=== PATIENT | female | born 1955 | race African-American/Black ===

== ENCOUNTER 2016-05-13 02:55 | Inpatient (IN) | payer OTHER ==
[2016-05-13 03:10] VITALS: BMI 30.4
[2016-05-13 04:07] LABS: URINE APPEARANCE SLCLOUDY; URINE BILIRUBIN NEGATIVE (NEGATIVE); URINE BLOOD NEGATIVE (NEGATIVE); URINE COLOR LTYELLOW; URINE GLUCOSE (UA) NEGATIVE (NEGATIVE); URINE KETONE NEGATIVE (NEGATIVE); URINE NITRITE NEGATIVE (NEGATIVE); URINE UROBILINOGEN NEGATIVE E.U./dl (0.2-1.0)
[2016-05-13 04:17] LABS: URINE LEUK ESTERASE 2+ (NEGATIVE); URINE PROTEIN 2+ (NEGATIVE)
[2016-05-13 04:18] LABS: URINE BACTERIA MANY /hpf (NONE SEEN); URINE HYALINE CAST 2 /lpf; URINE RBC 3 /hpf (0-3); URINE WBC 22 /hpf (3-5)
--- NOTE | 2016-05-13 04:44 | PDOC ---
[id number] 4d HEADACHE Time Seen by Provider: 05/13/16 03:11 History Source: Patient, Family Exam Limitations: No Limitations - History of Present Illness Initial Comments: 05/13/16 04:40 60yo Female patient presents to ED c/o chest tightness, sweating, headache and B /P 220/75 sudden onset at 12am this morning. Patient reports history of DM, HTN , CKD. She states she was lying down trying to sleep when symptoms began. Patient denies any other complaints at this time. Presenting Symptoms: Chest Pain Timing/Duration: reports: resolved prior to arrival Severity/Quality: reports: moderate Location: reports: substernal Chest Pain Radiation: reports: no radiation Activities at Onset: reports: no specific activity Prior Chest Pain/Cardiac Workup: reports: Stress Test (EF 57%) Modifying Factors: worse with: antacids, breathing, coughing, defecating, eating , exercise, lying down, morphine, movement, nitroglycerin, oxygen, palpation, rest, other Past History - Travel Traveled outside of the country in the last 30 days: No Close contact w/someone who was outside of country & ill: No - Past Medical History Allergies/Adverse Reactions: Allergies Allergy/AdvReac Type Severity Reaction Status Date / Time No Known Drug Allergies Allergy Verified 05/13/16 03:05 Home Medications: Ambulatory Orders Enalapril Maleate [Vasotec -] 20 mg PO DAILY 05/13/16 Insulin Glargine,Hum.rec.anlog [Lantus (10mL VIAL) -] 30 units SQ HS 05/13/16 Aspirin Coated [Ecotrin -] 81 mg PO DAILY 05/16/16 Atorvastatin Ca [Lipitor] 80 mg PO HS #30 tab 05/16/16 Docusate Sodium [Colace -] 100 mg PO BID 05/16/16 Metoprolol Succinate [Toprol XL -] 50 mg PO DAILY #30 05/16/16 Nifedipine ER [Procardia XL -] 60 mg PO DAILY #30 05/16/16 Insulin Sliding Scale [Novolog Vial Sliding Scale -] 5 units SQ QID 07/08/16 Diabetes: Yes HTN: Yes Other medical history: CKD - Psycho/Social/Smoking Cessation Hx Suicidal Ideation: No Smoking History: Never smoked Cardiac Specific PMH - Complaint Specific PMHX Abdominal Aortic Aneurysm: No Angina: No Cardiac Arrhythmia: No Cardiac Stent: No GERD: No Myocardial Infarction: No Pacemaker: No Pulmonary Embolus: No Valvular Heart Disease: No Peripheral Vascular Disease: No Review of Systems - Review of Systems Able to Perform ROS?: Yes Is the patient limited Czech proficient: No Constitutional: Yes: Weakness. No: Night Sweats Respiratory: No: Cough, Shortness of Breath, Stridor, Wheezing, Productive cough Cardiac (ROS): Yes: Chest Tightness. No: Chest Pain, Lightheadedness, Palpitations ABD/GI: No: Constipated, Diarrhea, Nausea, Poor Appetite, Poor Fluid Intake, Vomiting : No: Dysuria Musculoskeletal: No: Back Pain Integumentary: No: Erythema, Rash Neurological: Yes: Headache. No: Seizure, Tremors, Weakness, Unsteady Gait, Ataxia, Dizziness All Other Systems: Reviewed and Negative *Physical Exam - Vital Signs Last Vital Signs Temp Pulse Resp BP Pulse Ox 98.3 F 74 18 160/84 96 05/16/16 06:00 05/16/16 06:00 05/16/16 10:00 05/16/16 06:00 05/16/16 10:00 - Physical Exam General Appearance: Yes: Nourished, Appropriately Dressed. No: Apparent Distress, Mild Distress, Moderate Distress, Severe Distress HEENT: positive: EOMI, DEREK, Normal ENT Inspection, Normal Voice, Symmetrical, TMs Normal, Pharynx Normal. negative: Tonsillar Exudate, Tonsillar Erythema, Nasal Congestion, Rhinorrhea, TM Bulging, TM Dull, TM Erythema Neck: positive: Trachea midline, Supple. negative: Lymphadenopathy (R), Lymphadenopathy (L) Respiratory/Chest: positive: Lungs Clear, Normal Breath Sounds. negative: Respiratory Distress, Accessory Muscle Use, Labored Respiration, Rapid RR, Rales , Rhonchi, Wheezing Cardiovascular: positive: Regular Rhythm, Regular Rate. negative: Edema, JVD, Murmur Gastrointestinal/Abdominal: positive: Normal Bowel Sounds, Soft. negative: Distended, Guarding, Rebound, Tenderness, Hernia, Mass Musculoskeletal: positive: Normal Inspection. 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 NML intact, Fully Oriented, Alert, Normal Mood/ Affect, Normal Response, Motor Strength 5/5 Heart Score/ECG Review - ECG Impressions Normal ECG: Yes Non-specific ST Elevation: No Ischemic Changes: No Bradycardia: No Torsades annie Pointes: No WPW: No ED Treatment Course - LABORATORY CBC & Chemistry Diagram: 05/16/16 05:35 05/16/16 05:35 - ADDITIONAL ORDERS Additional order review: 05/13/16 03:56 RBC 3.10 L MCV 84.0 MCHC 33.5 RDW 13.6 MPV 9.6 Neutrophils % 59.0 Lymphocytes % 27.1 Monocytes % 7.4 Eosinophils % 5.3 H Basophils % 1.2 - RADIOLOGY Radiology Studies Ordered: Category Date Time Status CHEST PA & LAT [RAD] Stat Radiology 05/13/16 03:32 Completed - Medications Given in the ED: ED Medications Discontinued Medications Generic Name Dose Route Start Last Admin Trade Name Freq PRN Reason Stop Dose Admin Acetaminophen 650 mg 05/13/16 05:34 05/13/16 05:53 Tylenol - PO 05/13/16 05:35 650 mg ONCE ONE Administration Amlodipine Besylate 5 mg 05/14/16 17:30 05/14/16 18:02 Norvasc - PO 5 mg DAILY MERLY Administration Aspirin 324 mg 05/13/16 07:03 05/13/16 07:08 Asa - PO 05/13/16 07:04 324 mg ONCE ONE Administration Aspirin 81 mg 05/14/16 10:00 05/16/16 09:13 Ecotrin - PO 81 mg DAILY MERLY Administration Atorvastatin Calcium 20 mg 05/13/16 22:00 05/13/16 22:31 Lipitor - PO 20 mg HS MERLY Administration Atorvastatin Calcium 80 mg 05/14/16 22:00 05/15/16 21:30 Lipitor - PO 80 mg HS MERLY Administration Docusate Sodium 100 mg 05/14/16 10:00 05/16/16 09:13 Colace - PO 100 mg BID MERLY Administration Enalapril Maleate 10 mg 05/14/16 10:00 05/16/16 09:13 Vasotec - PO 10 mg DAILY MERLY Administration Furosemide 40 mg 05/13/16 08:48 05/13/16 09:26 Lasix Injection - IVPUSH 05/13/16 08:49 40 mg ONCE ONE Administration Furosemide 40 mg 05/14/16 09:16 05/14/16 09:45 Lasix Injection - IVPUSH 05/14/16 09:17 40 mg ONCE ONE Administration Furosemide 40 mg 05/15/16 10:00 05/16/16 09:12 Lasix Injection - IVPUSH 40 mg DAILY MERLY Administration Heparin Sodium (Porcine) 5,000 unit 05/13/16 22:00 05/16/16 09:12 Heparin - SQ 5,000 unit BID MERLY Administration Insulin Aspart 1 vial 05/14/16 07:00 05/16/16 12:00 Novolog Vial Sliding Scale - SQ Not Given ACHS [facility] Protocol Insulin Detemir 30 units 05/14/16 22:00 05/15/16 21:29 Levemir Vial SQ 30 units HS MERLY Administration Metoprolol Succinate 25 mg 05/13/16 11:15 05/14/16 09:39 Toprol Xl - PO 25 mg DAILY MERLY Administration Metoprolol Succinate 50 mg 05/15/16 10:00 05/16/16 09:13 Toprol Xl - PO 50 mg DAILY MERLY Administration Metoprolol Succinate 25 mg 05/14/16 17:30 05/14/16 18:02 Toprol Xl - PO 05/14/16 17:31 25 mg ONCE ONE Administration Nifedipine 60 mg 05/15/16 10:00 05/16/16 09:13 Procardia Xl - PO 60 mg DAILY MERLY Administration Progress Note - Progress Note Progress Note: PATIENT AWAITING ADMISSION TO HOSPITAL BY DR. NEW. PATIENT SHOULD BE ADMITTED FOR OBSERVATION RE: CHEST PAIN/CHF/RENAL INSUFFICIENCY. ---RANJANA DROSS PULLER *DC/Admit/Observation/Transfer Diagnosis at time of Disposition: SOB (shortness of breath) - Discharge Dispostion Disposition: HOME Condition at time of disposition: Improved Admit: No - Prescriptions
[2016-05-13 04:52] LABS: ALBUMIN 2.7 g/dl (3.4-5.0); BILIRUBIN,TOTAL 0.2 mg/dL (0.2-1.0); CALCIUM 7.9 mg/dL (8.5-10.1); CREATININE 2.5 mg/dL (0.55-1.02); MAGNESIUM 2.1 mg/dL (1.8-2.4); TOT PROT 6.6 g/dl (6.4-8.2)
[2016-05-13 04:55] LABS: TROPONIN I 0.05 ng/ml (0.00-0.05)
[2016-05-13] MEDS ORDERED: ACETAMINOPHEN 325 MG TABLET (FP) PO ONE (05:34)
[2016-05-13] MEDS ORDERED: ACETAMINOPHEN 325 MG TABLET (FP) ONE (05:54)
[2016-05-13 06:41] LABS: BASOPHIL 1.2 % (0-2.0); EOSINOPHIL 5.3 % (0-4.5); MCH 28.1 pg (25.7-33.7); MCHC 33.5 g/dl (32.0-36.0); MEAN PLT VOLUME 9.6 fl (7.5-11.1); PLATELET COUNT 329 K/MM3 (134-434); RDW 13.6 % (11.6-15.6); WHITE BLOOD COUNT 12.3 K/mm3 (4.0-10.0)
[2016-05-13] MEDS ORDERED: ASPIRIN 81 MG CHEWABLE TABLETS PO ONE (07:03)
[2016-05-13] MEDS ORDERED: ASPIRIN 325 MG TABLET ONE (07:06)
--- NOTE | 2016-05-13 07:41 | PDOC ---
[id number] 142/63 97 05/13/16 03:07 05/13/16 03:07 05/13/16 03:07 05/13/16 03:07 05/13/16 03:07 - Physical Exam General Appearance: Yes: Appropriately Dressed. No: Apparent Distress HEENT: positive: Normal Voice Neck: positive: Supple Respiratory/Chest: positive: Lungs Clear, Normal Breath Sounds. negative: Respiratory Distress Cardiovascular: positive: Regular Rate, S1, S2 Gastrointestinal/Abdominal: positive: Soft. negative: Tender Extremity: positive: Pedal Edema Integumentary: positive: Dry, Warm Neurologic: positive: Fully Oriented, Alert, Normal Mood/Affect (trace edema) <Bryan Wright - Last Filed: 05/13/16 08:55> - Vital Signs Last Vital Signs Temp Pulse Resp BP Pulse Ox 98.3 F 74 18 160/84 96 05/16/16 06:00 05/16/16 06:00 05/16/16 10:00 05/16/16 06:00 05/16/16 10:00 <Reyes Abad - Last Filed: 05/19/16 06:56> ED Treatment Course - LABORATORY CBC & Chemistry Diagram: 05/13/16 03:56 05/13/16 03:56 - ADDITIONAL ORDERS Additional order review: Laboratory Results 05/13/16 05/13/16 03:56 03:32 Sodium 139 Potassium 5.3 H Chloride 106 Carbon Dioxide 26 Anion Gap 7 L BUN 52 H Creatinine 2.5 H Creat Clearance w eGFR 19.65 Random Glucose 132 H Calcium 7.9 L Phosphorus 4.0 Magnesium 2.1 Total Bilirubin 0.2 AST 20 ALT 22 Alkaline Phosphatase 126 H Creatine Kinase 177 CK-MB (CK-2) 1.948 Troponin I 0.05 B-Natriuretic Peptide 556.94 H Total Protein 6.6 Albumin 2.7 L Urine Color Ltyellow Urine Appearance Slcloudy Urine pH 5.0 Ur Specific [place] 1.014 Urine Protein 2+ H Urine Glucose (UA) Negative Urine Ketones Negative Urine Blood Negative Urine Nitrite Negative Urine Bilirubin Negative Urine Urobilinogen Negative Ur Leukocyte Esterase 2+ H Urine RBC 3 Urine WBC 22 Ur Epithelial Cells Few Urine Bacteria Many Hyaline Casts 2 05/13/16 03:56 RBC 3.10 L MCV 84.0 MCHC 33.5 RDW 13.6 MPV 9.6 Neutrophils % 59.0 Lymphocytes % 27.1 Monocytes % 7.4 Eosinophils % 5.3 H Basophils % 1.2 - Medications Given in the ED: ED Medications Discontinued Medications Generic Name Dose Route Start Last Admin Trade Name Nneka PRN Reason Stop Dose Admin Acetaminophen 650 mg 05/13/16 05:34 05/13/16 05:53 Tylenol - PO 05/13/16 05:35 650 mg ONCE ONE Administration Aspirin 324 mg 05/13/16 07:03 05/13/16 07:08 Asa - PO 05/13/16 07:04 324 mg ONCE ONE Administration <Bryan Wright - Last Filed: 05/13/16 08:55> - LABORATORY CBC & Chemistry Diagram: 05/16/16 05:35 05/16/16 05:35 - ADDITIONAL ORDERS Additional order review: 05/13/16 03:56 RBC 3.10 L MCV 84.0 MCHC 33.5 RDW 13.6 MPV 9.6 Neutrophils % 59.0 Lymphocytes % 27.1 Monocytes % 7.4 Eosinophils % 5.3 H Basophils % 1.2 - Medications Given in the ED: ED Medications Discontinued Medications Generic Name Dose Route Start Last Admin Trade Name Nneka PRN Reason Stop Dose Admin Acetaminophen 650 mg 05/13/16 05:34 05/13/16 05:53 Tylenol - PO 05/13/16 05:35 650 mg ONCE ONE Administration Amlodipine Besylate 5 mg 05/14/16 17:30 05/14/16 18:02 Norvasc - PO 5 mg DAILY MERLY Administration Aspirin 324 mg 05/13/16 07:03 05/13/16 07:08 Asa - PO 05/13/16 07:04 324 mg ONCE ONE Administration Aspirin 81 mg 05/14/16 10:00 05/16/16 09:13 Ecotrin - PO 81 mg DAILY MERLY Administration Atorvastatin Calcium 20 mg 05/13/16 22:00 05/13/16 22:31 Lipitor - PO 20 mg HS MERLY Administration Atorvastatin Calcium 80 mg 05/14/16 22:00 05/15/16 21:30 Lipitor - PO 80 mg HS MERLY Administration Docusate Sodium 100 mg 05/14/16 10:00 05/16/16 09:13 Colace - PO 100 mg BID MERLY Administration Enalapril Maleate 10 mg 05/14/16 10:00 05/16/16 09:13 Vasotec - PO 10 mg DAILY MERLY Administration Furosemide 40 mg 05/13/16 08:48 05/13/16 09:26 Lasix Injection - IVPUSH 05/13/16 08:49 40 mg ONCE ONE Administration Furosemide 40 mg 05/14/16 09:16 05/14/16 09:45 Lasix Injection - IVPUSH 05/14/16 09:17 40 mg ONCE ONE Administration Furosemide 40 mg 05/15/16 10:00 05/16/16 09:12 Lasix Injection - IVPUSH 40 mg DAILY MERLY Administration Heparin Sodium (Porcine) 5,000 unit 05/13/16 22:00 05/16/16 09:12 Heparin - SQ 5,000 unit BID MERLY Administration Insulin Aspart 1 vial 05/14/16 07:00 05/16/16 12:00 Novolog Vial Sliding Scale - SQ Not Given ACHS [facility] Protocol Insulin Detemir 30 units 05/14/16 22:00 05/15/16 21:29 Levemir Vial SQ 30 units HS MERLY Administration Metoprolol Succinate 25 mg 05/13/16 11:15 05/14/16 09:39 Toprol Xl - PO 25 mg DAILY MERLY Administration Metoprolol Succinate 50 mg 05/15/16 10:00 05/16/16 09:13 Toprol Xl - PO 50 mg DAILY MERLY Administration Metoprolol Succinate 25 mg 05/14/16 17:30 05/14/16 18:02 Toprol Xl - PO 05/14/16 17:31 25 mg ONCE ONE Administration Nifedipine 60 mg 05/15/16 10:00 05/16/16 09:13 Procardia Xl - PO 60 mg DAILY MERLY Administration <Reyes Abad - Last Filed: 05/19/16 06:56> Medical Decision Making - Medical Decision Making 05/13/16 07:36 Patient signed out to me at 7 AM. Patient is a 60-year-old female history of diabetes, hypertension and chronic kidney disease who presented with chest tightness, diaphoresis and headache in the setting of elevated BP at home. BP normalized in ED without any intervention. Pt found to have positive crackles on exam and pedal edema, which is intermittent as per patient. Labs only remarkable for BNP in the 500s (unknown baseline) with congestive changes on chest x-ray. EKG and initial troponin negative, second troponin pending. Of note, patient had stress test 4 days ago, which showed no significant EKG changes on exercise portion, but nuclear portion did show mild nonextensive inferolateral ischemia with EF of 57% . Patient currently asymptomatic and stable on the monitor. 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 05/13/16 08:[address] Rose who recommended 1 dose of 40 mg IV Lasix in ED and that ED placed consult to Dr. Pinon. Patient will be admitted to telemetry 05/13/16 08:55 <Bryan Wright - Last Filed: 05/13/16 08:55> - Medical Decision Making 05/19/16 06:56 ED Attending note: I was available, involved in the case with the mid level provider as needed and in a limited capacity. <Reyes Abad - Last Filed: 05/19/16 06:56> *DC/Admit/Observation/Transfer - Discharge Dispostion Admit: Yes <Bryan Wright - Last Filed: 05/13/16 08:55> <Reyes Abad - Last Filed: 05/19/16 06:56> Diagnosis at time of Disposition: SOB (shortness of breath) - Discharge Dispostion Disposition: HOME Condition at time of disposition: Improved - Prescriptions - Referrals
[2016-05-13] MEDS ORDERED: FUROSEMIDE 40 MG/4 ML INJECTABLE VIAL IVPUSH ONE (08:48)
[2016-05-13] MEDS ORDERED: FUROSEMIDE 40 MG/4 ML INJECTABLE VIAL ONE (09:16)
--- NOTE | 2016-05-13 10:26 | CON.CARD ---
[id number] 4d hypertensive urgency - History of Present Illness Chief Complaint: hi bp History of Present Illness: 60 yo Female patient presents to ED c/o chest tightness, sweating, headache and B/P 220/75 sudden onset at 12am this morning. occurred while she was lying in bed, not yet having fallen asleep. also associated L scapular pain but no radiation of chest to back, no "tearing" sensation. no assctd new neuro deficits. the above sx's have all resolved. never had them before. denies sob. now c/o R scapular pain which is worse with movement, better if i press on the area. bp 140s upon arrival to ER, came down from there PMH: HTN DM CKD - Smoking History Smoking history: Never smoked Home Medications - Allergies Allergies/Adverse Reactions: Allergies Allergy/AdvReac Type Severity Reaction Status Date / Time No Known Drug Allergies Allergy Verified 05/13/16 03:05 - Home Medications Home Medications: Ambulatory Orders Docusate Sodium [Colace -] 100 mg PO DAILY 05/13/16 Enalapril Maleate [Vasotec -] 10 mg PO DAILY 05/13/16 Insulin Aspart [Novolog] 5 unit SQ TID 05/13/16 Insulin Glargine,Hum.rec.anlog [Lantus (nf)] 30 units SQ HS 05/13/16 Nifedipine [Procardia Xl] 90 mg PO DAILY 05/13/16 Family Disease History - Family Disease History Family History: Denies (no cmp) Review of Systems - Review of Systems Constitutional: denies: Chills, Fever Eyes: denies: Eye Pain HENT: denies: Nasal Congestion Neck: denies: Stiffness Cardiovascular: denies: Palpitations Respiratory: denies: Orthopnea, PND Gastrointestinal: denies: Diarrhea, Rectal Bleeding Genitourinary: denies: Burning, Hematuria Musculoskeletal: denies: Muscle Pain Integumentary: denies: Rash Neurological: denies: Numbness, Seizure, Syncope Endocrine: denies: Excessive Sweating Hematology/Lymphatic: denies: Excessive Bleeding Vital Signs: Vital Signs Temperature 97.7 F 05/13/16 07:23 Pulse Rate 82 05/13/16 09:25 Respiratory Rate 16 05/13/16 09:25 Blood Pressure 121/68 05/13/16 09:25 O2 Sat by Pulse Oximetry (%) 98 05/13/16 09:25 Constitutional: Yes: No Distress, Obese Eyes: No: Sclera Icterus HENT: No: Nasal Congestion Neck: No: Decreased ROM Respiratory: Yes: CTA Bilaterally. No: Accessory Muscle Use, Rales, Wheezes Gastrointestinal: Yes: Normal Bowel Sounds. No: Distention, Hepatomegaly, Palpable Mass, Tenderness Cardiovascular: Yes: Regular Rate and Rhythm JVD: No Carotid Bruit: No PMI: Non-Displaced Heart Sounds: Yes: S1, S2. No: Gallop Murmur: No: Systolic Murmur, Diastolic Murmur Musculoskeletal: Yes: Other (No kyphosis) Extremities: No: Cold, Cyanosis Edema: Yes (trace ankles) Peripheral Pulses: 2+ Left Carotid, 2+ Right Carotid, 2+ Left Doralis Pedis, 2+ Right Dorsalis Pedis Integumentary: No: Jaundice Neurological: Yes: Alert, Oriented (x3) Psychiatric: No: Agitated - Other Data Labs, Other Data: Laboratory Tests 05/13/16 05/13/16 05/13/16 03:56 03:56 05:52 WBC 12.3 H Hgb 8.7 L Plt Count 329 Sodium 139 Potassium 5.3 H Carbon Dioxide 26 BUN 52 H Creatinine 2.5 H AST 20 ALT 22 Troponin I 0.05 0.05 B-Natriuretic Peptide 556.94 H Albumin 2.7 L ekg in ER 05/13: NSR, nornmal axis/intervals; NSST-T lateral leads; no path q's ( no old) Imaging - Results Chest X-ray: Report Reviewed, Image Reviewed Assessment/Plan HTN urgency: -symptomatic severe bp elevation ? while asleep -bp 140s upon arrival to ER, now normotensive -? BOO contributing -cont home nifedipine -hold enalapril pending input from dr persaud (? 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 baseline -creat 2.5 elevated BNP: -bnp 500s in setting of hi creat--not helpful data -cxr "large heart, congestive changes"--reviewed by me: heart size borderline; prob vasc redistribution with mild interstitial markings, no effusions -s/p lasix in ER x 1 early this am -comfortable with no sob/orthopnea at present, no signif edema, cannot assess jvd sec to markedly obese neck -hold further lasix for now
[2016-05-13] MEDS: METOPROLOL SUCCINATE 25 MG TAB.SR.24H (FP) PO SCH (11:42)
[2016-05-13 13:56] LABS: TROPONIN I 0.04 ng/ml (0.00-0.05)
--- NOTE | 2016-05-13 17:45 | CONSULT ---
Consult Consult Specialty:: Nephrology Reason for Consultation:: ANAIS - History of Present Illness Chief Complaint: chest tightness History of Present Illness: Pt is a 60 year old female who presents to the ER with chest tightness. She was found to have elevated blood pressure. I was called to evaluate her for elevated creatinine. She denies history of CKD. She denies dysuria or hematuria. She has history of DM and HTN. She says she feels better today. She does not know which meds she is on. She does not know how her blood pressure usually runs. - History Source History Provided By: Patient - Past Medical History Cardio/Vascular: Yes: HTN, Hyperlipdemia Renal/: Yes: Renal Inusuff - Smoking History Smoking history: Never smoked Home Medications - Allergies Allergies/Adverse Reactions: Allergies Allergy/AdvReac Type Severity Reaction Status Date / Time No Known Drug Allergies Allergy Verified 05/13/16 03:05 - Home Medications Home Medications: Ambulatory Orders Docusate Sodium [Colace -] 100 mg PO DAILY 05/13/16 Enalapril Maleate [Vasotec -] 10 mg PO DAILY 05/13/16 Insulin Aspart [Novolog] 5 unit SQ TID 05/13/16 Insulin Glargine,Hum.rec.anlog [Lantus (nf)] 30 units SQ HS 05/13/16 Nifedipine [Procardia Xl] 90 mg PO DAILY 05/13/16 Family Disease History - Family Disease History Family History: Denies Review of Systems - Review of Systems Constitutional: reports: Malaise Eyes: reports: No Symptoms HENT: reports: No Symptoms Neck: reports: No Symptoms Cardiovascular: reports: Chest Pain Respiratory: reports: No Symptoms Gastrointestinal: reports: No Symptoms Genitourinary: reports: No Symptoms Musculoskeletal: reports: No Symptoms Endocrine: reports: No Symptoms Hematology/Lymphatic: reports: No Symptoms Psychiatric: reports: No Symptoms Physical Exam Vital Signs: Vital Signs Temperature 97.9 F 05/13/16 17:30 Pulse Rate 84 05/13/16 17:30 Respiratory Rate 18 05/13/16 17:30 Blood Pressure 136/78 05/13/16 17:30 O2 Sat by Pulse Oximetry (%) 97 05/13/16 17:30 Constitutional: Yes: Calm Eyes: Yes: Conjunctiva Clear HENT: Yes: Atraumatic Neck: Yes: Supple Cardiovascular: Yes: S1, S2 Respiratory: Yes: CTA Bilaterally Gastrointestinal: Yes: Normal Bowel Sounds, Soft Renal/: Yes: WNL Musculoskeletal: Yes: WNL Edema: No Neurological: Yes: Oriented Psychiatric: Yes: Oriented Labs: Laboratory Tests 05/13/16 05/13/16 05/13/16 03:32 03:56 03:56 WBC 12.3 H Hgb 8.7 L Plt Count 329 Sodium 139 Potassium 5.3 H Chloride 106 Carbon Dioxide 26 Anion Gap 7 L BUN 52 H Creatinine 2.5 H Random Glucose 132 H Calcium 7.9 L B-Natriuretic Peptide 556.94 H Urine Color Ltyellow Urine Appearance Slcloudy Urine pH 5.0 Ur Specific [place] 1.014 Urine Protein 2+ H Urine Glucose (UA) Negative Urine Ketones Negative Urine Blood Negative Urine Nitrite Negative Urine Bilirubin Negative Urine Urobilinogen Negative Imaging - Results Chest X-ray: Report Reviewed Problem List - Problems (1) Hypertension Code(s): I10 - ESSENTIAL (PRIMARY) HYPERTENSION (2) Diabetes mellitus Code(s): E11.9 - TYPE 2 DIABETES MELLITUS WITHOUT COMPLICATIONS (3) CKD (chronic kidney disease) Code(s): N18.9 - CHRONIC KIDNEY DISEASE, UNSPECIFIED Assessment/Plan Current Medications Generic Name Dose Route Start Last Admin Trade Name Freq PRN Reason Stop Dose Admin Aspirin 81 mg 05/14/16 10:00 Ecotrin - PO DAILY MERLY Atorvastatin Calcium 20 mg 05/13/16 22:00 Lipitor - PO HS MERLY Heparin Sodium (Porcine) 5,000 unit 05/13/16 22:00 Heparin - SQ BID MERLY Metoprolol Succinate 25 mg 05/13/16 11:15 05/13/16 11:42 Toprol Xl - PO 25 mg DAILY MERLY Administration Selected Entries 05/13/16 05/13/16 05/13/16 07:23 09:25 11:40 Blood Pressure 119/70 121/68 115/63 [Left Arm] 05/13/16 05/13/16 12:40 17:30 Blood Pressure 103/63 136/78 [Left Arm] Impression 1. CKD unclear baseline creatinine 2. HTN uncontrolled 3. chest pain r/o acs 4. hyperlipidemia Plan - check UA - blood pressure values have been stable - will need to obtain outpt records - repeat labs in am - will follow and comment on etiology of CKD as more data is gathered Dr Nevarez
--- NOTE | 2016-05-13 19:35 | HP ---
Admitting History and Physical - Primary Care Physician PCP: chest pain - Admission History of Present Illness: Patient is a 60-year-old female, who relocated to [facility] about 6 months ago -- admits "poor medical care in her country" She has about 20 yr history of diabetes, hypertension and on recent labs found to have Cr 2.2 - which is probably her baseline. Patient called the service with c/o chest pain, cold sweats and "difficulty breathing"- she reports she was unable to lay flat due to SOB. Daughter who is an RN reports patient with rales and wheezing at that time ( no Hx of asthma)- she was instructed to go the [facility] ER--- She presents to ER with chest tightness, diaphoresis and headache in the setting of elevated BP at home. BP normalized in ED without any intervention. Pt found to have positive crackles on exam and pedal edema, which is intermittent as per patient. Labs only remarkable for BNP in the 500s (unknown baseline) with congestive changes on chest x-ray; elevated BNP not useful in the setting of CKD. EKG and initial troponin negative, second troponin pending. Of note, patient had stress test 4 days ago, which showed no significant EKG changes on exercise portion, but nuclear portion did show mild nonextensive inferolateral ischemia with EF of 57%. Patient currently asymptomatic and stable on the monitor. History Source: Patient, Family Member (daughter), Medical Record Limitations to Obtaining History: No Limitations - Past Medical History Cardiovascular: Yes: HTN, Hyperlipdemia Renal/: Yes: Renal Inusuff Endocrine: Yes: Diabetes Mellitus - Smoking History Smoking history: Never smoked - Alcohol/Substance Use History of Substance Use: reports: None - Social History ADL: Independent History of Recent Travel: Yes Home Medications - Allergies Allergies/Adverse Reactions: Allergies Allergy/AdvReac Type Severity Reaction Status Date / Time No Known Drug Allergies Allergy Verified 05/13/16 03:05 - Home Medications Home Medications: Ambulatory Orders Docusate Sodium [Colace -] 100 mg PO DAILY 05/13/16 Enalapril Maleate [Vasotec -] 10 mg PO DAILY 05/13/16 Insulin Aspart [Novolog] 5 unit SQ TID 05/13/16 Insulin Glargine,Hum.rec.anlog [Lantus (nf)] 30 units SQ HS 03/20/17 Nifedipine [Procardia Xl] 90 mg PO DAILY 05/13/16 Review of Systems - Review of Systems Constitutional: reports: No Symptoms Eyes: reports: No Symptoms HENT: reports: No Symptoms Neck: reports: No Symptoms Cardiovascular: reports: Chest Pain, Shortness of Breath, Other (diaphoresis) Respiratory: reports: SOB Genitourinary: reports: No Symptoms Breasts: reports: No Symptoms Reported Musculoskeletal: reports: No Symptoms Integumentary: reports: No Symptoms Neurological: reports: Headache Endocrine: reports: No Symptoms Hematology/Lymphatic: reports: No Symptoms Psychiatric: reports: No Symptoms Physical Examination Vital Signs: Vital Signs Temperature 97.9 F 05/13/16 17:30 Pulse Rate 84 05/13/16 17:30 Respiratory Rate 18 05/13/16 17:30 Blood Pressure 136/78 05/13/16 17:30 O2 Sat by Pulse Oximetry (%) 97 05/13/16 17:30 Constitutional: Yes: Well Nourished, No Distress, Calm Eyes: Yes: WNL HENT: Yes: WNL Neck: Yes: Supple, Trachea Midline Cardiovascular: Yes: WNL, Regular Rate and Rhythm Respiratory: Yes: WNL Gastrointestinal: Yes: WNL, Normal Bowel Sounds, Soft ...Rectal Exam: Yes: Deferred Renal/: Yes: WNL Breast(s): Yes: WNL Musculoskeletal: Yes: WNL Extremities: Yes: WNL Edema: Yes Edema: LLE: 2+, RLE: 2+ Peripheral Pulses: Left Radial: 2+, Right Radial: 2+, Left Doralis Pedis: 2+, Right Dorsalis Pedis: 2+, Left Femoral: 2+, Right Femoral: 2+ Neurological: Yes: WNL ...Motor Strength: WNL Psychiatric: Yes: WNL Problem List - Problems (1) ACS (acute coronary syndrome) Code(s): I24.9 - ACUTE ISCHEMIC HEART DISEASE, UNSPECIFIED (2) SOB (shortness of breath) Code(s): R06.02 - SHORTNESS OF BREATH (3) CKD (chronic kidney disease) Code(s): N18.9 - CHRONIC KIDNEY DISEASE, UNSPECIFIED (4) Diabetes mellitus Code(s): E11.9 - TYPE 2 DIABETES MELLITUS WITHOUT COMPLICATIONS (5) Hypertension Code(s): I10 - ESSENTIAL (PRIMARY) HYPERTENSION (6) Diastolic dysfunction with heart failure Code(s): I50.30 - UNSPECIFIED DIASTOLIC (CONGESTIVE) HEART FAILURE Assessment/Plan # Atypical chest pain / SOB /diaphoresis acute coronary syndrome serial EKG / Troponins / records obtainable from office and [facility] Cardiology consult # Diabetes Mellitus II ~ 20 yrs Last HgA1c > 10 treatment adjusted at that time ( 1-2 months ago ) continue on Insulin -- Basal and with sliding scale # HTN ~ 15 yrs On Giuliano and CCB has been well controlled as out patient # CKD only one set of labs at office Cr 2.2 + proteinuria --? baseline U/A with proteinuria + cast on admission on GIULIANO i Nephrology consult # HLD fasting Lipids
[2016-05-13] MEDS ORDERED: ATORVASTATIN CA 20 MG TABLET (FP) PO SCH (22:00)
[2016-05-13] MEDS ORDERED: HEPARIN NA (PORCINE) 5,000 UNITS/ML 1ML VIAL ONE (22:19)
[2016-05-13] MEDS ORDERED: ATORVASTATIN CA 40 MG TABLET (FP) ONE (22:19)
[2016-05-13] MEDS: HEPARIN NA (PORCINE) 5,000 UNITS/ML 1ML VIAL SQ SCH (22:31)
[2016-05-14] MEDS: INSULIN SLIDING SCALE (NOVOLOG) 1 VIAL SQ SCH ×4 (06:07→21:49)
[2016-05-14 07:20] LABS: BASOPHIL 0.8 % (0-2.0); EOSINOPHIL 3.7 % (0-4.5); MCHC 33.8 g/dl (32.0-36.0); MEAN CELL VOLUME 82.9 fl (80-96); MEAN PLT VOLUME 9.4 fl (7.5-11.1); NEUTROPHILS 62.4 % (42.8-82.8); PLATELET COUNT 315 K/MM3 (134-434); RDW 13.6 % (11.6-15.6); WHITE BLOOD COUNT 11.9 K/mm3 (4.0-10.0)
[2016-05-14 07:48] LABS: CALCIUM 8.6 mg/dL (8.5-10.1); CREATININE 2.1 mg/dL (0.55-1.02)
[2016-05-14] MEDS ORDERED: FUROSEMIDE 40 MG/4 ML INJECTABLE VIAL IVPUSH ONE (09:16)
[2016-05-14] MEDS: DOCUSATE SODIUM 100 MG CAPSULE (FP) PO SCH ×2 (09:39→21:48)
[2016-05-14] MEDS: HEPARIN NA (PORCINE) 5,000 UNITS/ML 1ML VIAL SQ SCH ×2 (09:39→21:50)
[2016-05-14] MEDS: METOPROLOL SUCCINATE 25 MG TAB.SR.24H (FP) PO SCH (09:39)
[2016-05-14] MEDS: ENALAPRIL MALEATE 10 MG TABLET (FP) PO SCH (09:39)
[2016-05-14] MEDS: ASPIRIN COATED 81 MG TABLET.EC PO SCH (09:39)
[2016-05-14] MEDS ORDERED: NIFEdipine E.R. 90 MG TABLET (FP) PO SCH (10:00)
[2016-05-14] MEDS ORDERED: DOCUSATE SODIUM 100 MG CAPSULE (FP) PO SCH (10:00)
[2016-05-14 11:29] LABS: URINE APPEARANCE CLEAR; URINE BILIRUBIN NEGATIVE (NEGATIVE); URINE BLOOD NEGATIVE (NEGATIVE); URINE COLOR STRAW; URINE GLUCOSE (UA) NEGATIVE (NEGATIVE); URINE KETONE NEGATIVE (NEGATIVE); URINE LEUK ESTERASE NEGATIVE (NEGATIVE); URINE NITRITE NEGATIVE (NEGATIVE); URINE UROBILINOGEN NEGATIVE E.U./dl (0.2-1.0)
[2016-05-14 11:42] LABS: URINE PROTEIN 2+ (NEGATIVE)
[2016-05-14 12:06] LABS: URINE RBC 1 /hpf (0-3); URINE WBC 3 /hpf (3-5)
--- NOTE | 2016-05-14 12:12 | PN ---
Progress Note (short form) - Note Progress Note: Chief Complaint: high bp/sob S: s/p lasix 40 mg IV x 1 05/13 and this morning. sob, le edema improving. no cp, palps, dizziness. Current Medications Aspirin (Ecotrin -) 81 mg PO DAILY [facility] Last Admin: 05/14/16 09:39 Dose: 81 mg Atorvastatin Calcium (Lipitor -) 20 mg PO HS [facility] Last Admin: 05/13/16 22:31 Dose: 20 mg Docusate Sodium (Colace -) 100 mg PO BID [facility] Last Admin: 05/14/16 09:39 Dose: 100 mg Enalapril Maleate (Vasotec -) 10 mg PO DAILY [facility] Last Admin: 05/14/16 09:39 Dose: 10 mg Heparin Sodium (Porcine) (Heparin -) 5,000 unit SQ BID [facility] Last Admin: 05/14/16 09:39 Dose: 5,000 unit Insulin Aspart (Novolog Vial Sliding Scale -) 1 vial SQ [facility] PRN Reason: Protocol Last Admin: 05/14/16 06:07 Dose: Not Given Insulin Detemir (Levemir Vial) 30 units SQ [facility] Metoprolol Succinate (Toprol Xl -) 25 mg PO DAILY [facility] Last Admin: 05/14/16 09:39 Dose: 25 mg Vital Signs - 24 hr 05/13/16 05/13/16 05/13/16 12:40 17:30 21:00 Temperature 97.6 F 97.9 F 97 F L Pulse Rate 86 Pulse Rate [ 84 Right Radial] Pulse Rate [ 88 Right] Respiratory 18 18 20 Rate Blood Pressure 160/80 Blood Pressure 103/63 136/78 [Left Arm] O2 Sat by Pulse 90 L 97 Oximetry (%) 05/13/16 05/13/16 05/14/16 22:32 23:00 03:00 Temperature 98.2 F 97 F L 99.2 F Pulse Rate 90 93 H Pulse Rate [ 84 Right Radial] Pulse Rate [ 85 Right] Respiratory 18 20 20 Rate Blood Pressure 160/80 137/72 Blood Pressure 148/77 [Left Arm] O2 Sat by Pulse 95 95 Oximetry (%) 05/14/16 10:00 Temperature 98.7 F Pulse Rate 85 Pulse Rate [ Right Radial] Pulse Rate [ Right] Respiratory 20 Rate Blood Pressure 137/77 Blood Pressure [Left Arm] O2 Sat by Pulse 100 Oximetry (%) Intake & Output 05/12/16 05/13/16 05/14/16 05/15/16 07:59 07:59 07:59 07:59 Intake Total 100 Output Total 300 Balance -200 Weight 172 lb Constitutional: Yes: No Distress, Obese Eyes: No: Sclera Icterus HENT: No: Nasal Congestion Neck: No: Decreased ROM Respiratory: Yes: bibasilar rales. No: Accessory Muscle Use, Rales, Wheezes Gastrointestinal: Yes: Normal Bowel Sounds. No: Distention, Hepatomegaly, Palpable Mass, Tenderness Cardiovascular: Yes: Regular Rate and Rhythm JVD: mild elevation Carotid Bruit: No PMI: Non-Displaced Heart Sounds: Yes: S1, S2. No: Gallop Murmur: No: Systolic Murmur, Diastolic Murmur Musculoskeletal: Yes: Other (No kyphosis) Extremities: No: Cold, Cyanosis Edema: no Peripheral Pulses: 2+ Left Carotid, 2+ Right Carotid, 2+ Left Doralis Pedis, 2+ Right Dorsalis Pedis Integumentary: No: Jaundice Neurological: Yes: Alert, Oriented (x3) Psychiatric: No: Agitated - Other Data Labs, Other Data: CBC, BMP 05/14/16 05:35 05/14/16 05:35 Laboratory Tests 05/14/16 05:35 Triglycerides 158 Cholesterol 333 H Total LDL Cholesterol 248 H HDL Cholesterol 41 ekg in ER 05/13: NSR, nornmal axis/intervals; NSST-T lateral leads; no path q's ( no old) stress 04/2016 (outpt): non-ischemic EKG. mild intensity small area of inferolateral ischemia. Nl EF 57% Imaging - Results Chest X-ray: Report Reviewed, Image Reviewed. congestive changes with small effusions. Slightly improved on repeat today 05/14 Assessment/Plan 60 yo with h/o HTN, CKD, DM p/w sob/orthopnea, chest tightness, sweating, headache and B/P 220/75 acute diastolic HF exacerbation - acute HTN, possible trigger. No signs of valvular disease on exam. Would get echo as outpatient once euvolemic. - getting 40 mg IV lasix with improvement in creatinine and pulm edema. Would continue. Daily weights, bmp, i/o . - BP control HTN urgency: -symptomatic severe bp elevation ? while asleep --> bp 140s upon arrival to ER. Can consider sleep study as outpatient to assess if BOO contributing to nighttime bp elevation. - bp now improved on metoprolol, enalapril. con't - close monitoring of potassium on enalapril (borderline high). If need to stop , or if bp's > 140, can replace with/add home nifedipine cp/CAD: -trop neg x 3. ECG with nonsp ST-Ts no prior baseline. current presentation of nonspecific (nonexertional) sx's in setting of marked bp elevation are highly unlikely to be acute myocardial ischemia syndrome -small inferolateral ischemia on recent nuclear stress test (study done here, report reviewed ) with no hi risk findings--not likely contributing to chf and pt hi risk for CLAUDIO--would not rec cath. Cont medical management. - metoprolol, ASA and statin therapy initiated. HL - LDL significantly elevated. will increase statin dose to 80 mg qhs CKD: -? baseline, currently improving with diuresis. Con't to monitor
--- NOTE | 2016-05-14 15:04 | PN ---
Progress Note, Physician History of Present Illness: Pt seen and examined at bedside. She is awake and alert. She says she feels better today. She feels that her breathing is improved. - Current Medication List Current Medications: Active Medications Aspirin (Ecotrin -) 81 mg PO DAILY [facility] Last Admin: 05/14/16 09:39 Dose: 81 mg Atorvastatin Calcium (Lipitor -) 80 mg PO HS [facility] Docusate Sodium (Colace -) 100 mg PO BID [facility] Last Admin: 05/14/16 09:39 Dose: 100 mg Enalapril Maleate (Vasotec -) 10 mg PO DAILY [facility] Last Admin: 05/14/16 09:39 Dose: 10 mg Furosemide (Lasix Injection -) 40 mg IVPUSH DAILY [facility] Heparin Sodium (Porcine) (Heparin -) 5,000 unit SQ BID [facility] Last Admin: 05/14/16 09:39 Dose: 5,000 unit Insulin Aspart (Novolog Vial Sliding Scale -) 1 vial SQ [facility] PRN Reason: Protocol Last Admin: 05/14/16 12:10 Dose: Not Given Insulin Detemir (Levemir Vial) 30 units SQ HS [facility] Metoprolol Succinate (Toprol Xl -) 25 mg PO DAILY [facility] Last Admin: 05/14/16 09:39 Dose: 25 mg - Objective Vital Signs: Vital Signs Temperature 98.8 F 05/14/16 14:00 Pulse Rate 88 05/14/16 14:00 Respiratory Rate 20 05/14/16 14:00 Blood Pressure 159/87 05/14/16 14:00 O2 Sat by Pulse Oximetry (%) 100 05/14/16 10:00 Constitutional: Yes: Calm Eyes: Yes: Conjunctiva Clear HENT: Yes: Atraumatic Neck: Yes: Supple Cardiovascular: Yes: S1, S2 Respiratory: Yes: On Nasal O2 Gastrointestinal: Yes: Soft Genitourinary: Yes: WNL Musculoskeletal: Yes: WNL Edema: Yes Edema: LLE: Trace, RLE: Trace Neurological: Yes: Oriented Psychiatric: Yes: Oriented Labs: CBC, BMP 05/14/16 05:35 05/14/16 05:35 Problem List - Problems (1) Hypertension Code(s): I10 - ESSENTIAL (PRIMARY) HYPERTENSION (2) Diabetes mellitus Code(s): E11.9 - TYPE 2 DIABETES MELLITUS WITHOUT COMPLICATIONS (3) CKD (chronic kidney disease) Code(s): N18.9 - CHRONIC KIDNEY DISEASE, UNSPECIFIED Assessment/Plan Current Medications Generic Name Dose Route Start Last Admin Trade Name Nneka PRN Reason Stop Dose Admin Aspirin 81 mg 05/14/16 10:00 05/14/16 09:39 Ecotrin - PO 81 mg DAILY [facility] Administration Atorvastatin Calcium 80 mg 05/14/16 22:00 Lipitor - PO HS [facility] Docusate Sodium 100 mg 05/14/16 10:00 05/14/16 09:39 Colace - PO 100 mg BID [facility] Administration Enalapril Maleate 10 mg 05/14/16 10:00 05/14/16 09:39 Vasotec - PO 10 mg DAILY [facility] Administration Furosemide 40 mg 05/15/16 10:00 Lasix Injection - IVPUSH DAILY [facility] Heparin Sodium (Porcine) 5,000 unit 05/13/16 22:00 05/14/16 09:39 Heparin - SQ 5,000 unit BID [facility] Administration Insulin Aspart 1 vial 05/14/16 07:00 05/14/16 12:10 Novolog Vial Sliding Scale - SQ Not Given ACHS [facility] Protocol Insulin Detemir 30 units 05/14/16 22:00 Levemir Vial SQ HS [facility] Metoprolol Succinate 25 mg 05/13/16 11:15 05/14/16 09:39 Toprol Xl - PO 25 mg DAILY [facility] Administration Laboratory Tests 05/14/16 10:45 Urine Color Straw Urine Appearance Clear Urine pH 6.0 Ur Specific [place] 1.012 Urine Protein 2+ H Urine Glucose (UA) Negative Urine Ketones Negative Urine Blood Negative Urine Nitrite Negative Urine Bilirubin Negative Urine Urobilinogen Negative Ur Leukocyte Esterase Negative Impression 1. CKD unclear baseline creatinine 2. HTN uncontrolled 3. chest pain r/o acs 4. hyperlipidemia Plan - cont with lasix - start low potassium diet - cont vasotec for now - repeat labs in am - monitor BP - renal ultrasound reviewed Dr Nevarez
--- NOTE | 2016-05-14 17:05 | EKG ---
Test Reason : Blood Pressure : / mmHG Vent. Rate : 089 BPM Atrial Rate : 089 BPM P-R Int : 146 ms QRS Dur : 084 ms QT Int : 370 ms P-R-T Axes : 056 043 067 degrees QTc Int : 450 ms NORMAL SINUS RHYTHM NORMAL ECG WHEN COMPARED WITH ECG OF 13-MAY-2016 04:01, NO SIGNIFICANT CHANGE WAS FOUND Confirmed by SALVATORE ROBINS MD ([id number]) on 05/14/2016 5:05:01 PM Referred By: SHAHZAD STAUFFER Confirmed By:SALVATORE ROBINS MD
--- NOTE | 2016-05-14 17:11 | EKG ---
Test Reason : Blood Pressure : / mmHG Vent. Rate : 094 BPM Atrial Rate : 094 BPM P-R Int : 142 ms QRS Dur : 082 ms QT Int : 360 ms P-R-T Axes : 066 052 083 degrees QTc Int : 450 ms NORMAL SINUS RHYTHM NONSPECIFIC T WAVE ABNORMALITY ABNORMAL ECG NO PREVIOUS ECGS AVAILABLE Confirmed by JULIENNE SMITH, SALVATORE ([id number]) on 05/14/2016 5:10:51 PM Referred By: Confirmed By:SALVATORE ROBINS MD
[2016-05-14] MEDS ORDERED: amLODIPine BESYLATE 5 MG TABLET (FP) PO SCH (17:30)
[2016-05-14] MEDS ORDERED: METOPROLOL SUCCINATE 25 MG TAB.SR.24H (FP) PO ONE (17:30)
--- NOTE | 2016-05-14 20:18 | PN ---
Progress Note (short form) - Note Progress Note: patient comfortable reports less SOB states voided " a lot" after "the shot " this am Vital Signs Period Temp Pulse Resp BP Sys/Martel Pulse Ox Last 24 Hr 97 F-99.2 F 82-93 18-20 137-170/72-87 95-100 Intake & Output 05/11/16 05/12/16 05/13/16 05/14/16 23:59 23:59 23:59 23:59 Intake Total 100 Output Total 300 Balance -200 Weight 172 lb neck supple heart reg S1/S2 Lungs crackles at right base - otherwise clear abd soft non tenderness Ext Le ++ edema bilat up to thighs CBC, BMP 05/14/16 05:35 05/14/16 05:35 Active Medications Amlodipine Besylate (Norvasc -) 5 mg PO DAILY [facility] Last Admin: 05/14/16 18:02 Dose: 5 mg Aspirin (Ecotrin -) 81 mg PO DAILY [facility] Last Admin: 05/14/16 09:39 Dose: 81 mg Atorvastatin Calcium (Lipitor -) 80 mg PO HS [facility] Docusate Sodium (Colace -) 100 mg PO BID [facility] Last Admin: 05/14/16 09:39 Dose: 100 mg Enalapril Maleate (Vasotec -) 10 mg PO DAILY [facility] Last Admin: 05/14/16 09:39 Dose: 10 mg Furosemide (Lasix Injection -) 40 mg IVPUSH DAILY [facility] Heparin Sodium (Porcine) (Heparin -) 5,000 unit SQ BID [facility] Last Admin: 05/14/16 09:39 Dose: 5,000 unit Insulin Aspart (Novolog Vial Sliding Scale -) 1 vial SQ ACHS [facility] PRN Reason: Protocol Last Admin: 05/14/16 17:00 Dose: 2 units Insulin Detemir (Levemir Vial) 30 units SQ HS [facility] Metoprolol Succinate (Toprol Xl -) 50 mg PO DAILY [facility] Assessment/Plan # Atypical chest pain / SOB /diaphoresis acute coronary syndrome serial EKG / Troponins / records obtainable from office and [facility] Cardiology consult appreciated # Diabetes Mellitus II ~ 20 yrs Last HgA1c > 10 treatment adjusted at that time ( 1-2 months ago ) continue on Insulin -- Basal and with sliding scale # HTN ~ 15 yrs On Giuliano and BB episodes of high BP added CCB by cardio -- will consider Inc BB + diuretic # CKD only one set of labs at office Cr 2.2 + proteinuria --? baseline U/A with proteinuria + cast on admission on GIULIANO i will continue to monitor BUN /Cr Nephrology consult appreciated # HLD Atorvastatin Problem List - Problems (1) Diastolic dysfunction with heart failure Code(s): I50.30 - UNSPECIFIED DIASTOLIC (CONGESTIVE) HEART FAILURE (2) ACS (acute coronary syndrome) Code(s): I24.9 - ACUTE ISCHEMIC HEART DISEASE, UNSPECIFIED (3) SOB (shortness of breath) Code(s): R06.02 - SHORTNESS OF BREATH (4) CKD (chronic kidney disease) Code(s): N18.9 - CHRONIC KIDNEY DISEASE, UNSPECIFIED (5) Diabetes mellitus Code(s): E11.9 - TYPE 2 DIABETES MELLITUS WITHOUT COMPLICATIONS (6) Hypertension Code(s): I10 - ESSENTIAL (PRIMARY) HYPERTENSION
[2016-05-14] MEDS: ATORVASTATIN CA 20 MG TABLET (FP) PO SCH (21:48)
[2016-05-14] MEDS: INSULIN DETEMIR 100 UNITS/ML MDV SQ SCH (21:48)
[2016-05-15] MEDS: INSULIN SLIDING SCALE (NOVOLOG) 1 VIAL SQ SCH ×4 (06:00→21:28)
[2016-05-15 07:54] LABS: MCH 28.1 pg (25.7-33.7); MCHC 33.8 g/dl (32.0-36.0); MEAN CELL VOLUME 83.1 fl (80-96); MEAN PLT VOLUME 9.4 fl (7.5-11.1); PLATELET COUNT 320 K/MM3 (134-434); RDW 13.9 % (11.6-15.6); WHITE BLOOD COUNT 11.5 K/mm3 (4.0-10.0)
[2016-05-15 08:11] LABS: CALCIUM 8.4 mg/dL (8.5-10.1); CREATININE 2.2 mg/dL (0.55-1.02)
[2016-05-15] MEDS: NIFEdipine E.R 60 MG TABLET (UD) PO SCH (09:56)
[2016-05-15] MEDS: ENALAPRIL MALEATE 10 MG TABLET (FP) PO SCH (09:56)
[2016-05-15] MEDS: FUROSEMIDE 40 MG/4 ML INJECTABLE VIAL IVPUSH SCH (09:56)
[2016-05-15] MEDS: DOCUSATE SODIUM 100 MG CAPSULE (FP) PO SCH ×2 (09:56→21:30)
[2016-05-15] MEDS: ASPIRIN COATED 81 MG TABLET.EC PO SCH (09:56)
[2016-05-15] MEDS: METOPROLOL SUCCINATE 50 MG TAB.SR.24H (FP) PO SCH (09:56)
[2016-05-15] MEDS: HEPARIN NA (PORCINE) 5,000 UNITS/ML 1ML VIAL SQ SCH ×2 (09:56→21:29)
--- NOTE | 2016-05-15 10:24 | PN ---
Progress Note (short form) - Note Progress Note: patient sitting in bed feeling better Vital Signs Period Temp Pulse Resp BP Sys/Martel Pulse Ox Last 24 Hr 98.0 F-99 F 73-88 18-20 159-170/76-87 96-96 neck -jvd heart regular S1/S2 lungs decreased BS right base no wheezing or rales appreciated abd soft non tender ext ++edema LE bilat CBC, BMP 05/15/16 06:10 05/15/16 05:35 CXR increased right effusion on daily Lasix IV ( just got dose now) Active Medications Aspirin (Ecotrin -) 81 mg PO DAILY [facility] Last Admin: 05/15/16 09:56 Dose: 81 mg Atorvastatin Calcium (Lipitor -) 80 mg PO HS [facility] Last Admin: 05/14/16 21:48 Dose: 80 mg Docusate Sodium (Colace -) 100 mg PO BID [facility] Last Admin: 05/15/16 09:56 Dose: 100 mg Enalapril Maleate (Vasotec -) 10 mg PO DAILY [facility] Last Admin: 05/15/16 09:56 Dose: 10 mg Furosemide (Lasix Injection -) 40 mg IVPUSH DAILY [facility] Last Admin: 05/15/16 09:56 Dose: 40 mg Heparin Sodium (Porcine) (Heparin -) 5,000 unit SQ BID [facility] Last Admin: 05/15/16 09:56 Dose: 5,000 unit Insulin Aspart (Novolog Vial Sliding Scale -) 1 vial SQ [facility] PRN Reason: Protocol Last Admin: 05/15/16 06:00 Dose: Not Given Insulin Detemir (Levemir Vial) 30 units SQ HS [facility] Last Admin: 05/14/16 21:48 Dose: Not Given Metoprolol Succinate (Toprol Xl -) 50 mg PO DAILY [facility] Last Admin: 05/15/16 09:56 Dose: 50 mg Nifedipine (Procardia Xl -) 60 mg PO DAILY [facility] Last Admin: 05/15/16 09:56 Dose: 60 mg # Atypical chest pain / SOB /diaphoresis acute coronary syndrome serial EKG / Troponins / records obtainable from office and [facility] Cardiology consult appreciated # Diastolic dysfunction Acute Heart failure --responding to diuretics still with right effusion / cefalization on CXR on daily IV lasix will follow weights # Diabetes Mellitus II ~ 20 yrs Last HgA1c > 10 treatment adjusted at that time ( 1-2 months ago ) continue on Insulin -- Basal and with sliding scale # HTN ~ 15 yrs On Giuliano and BB episodes of high BP added CCB by cardio -- will consider Inc BB + diuretic will adjust meds further as out patient # CKD only one set of labs at office Cr 2.2 + proteinuria --? baseline U/A with proteinuria + cast on admission on GIULIANO i will continue to monitor BUN /Cr Nephrology consult appreciated # HLD Atorvastatin diet Problem List - Problems (1) Diastolic dysfunction with heart failure Code(s): I50.30 - UNSPECIFIED DIASTOLIC (CONGESTIVE) HEART FAILURE (2) ACS (acute coronary syndrome) Code(s): I24.9 - ACUTE ISCHEMIC HEART DISEASE, UNSPECIFIED (3) SOB (shortness of breath) Code(s): R06.02 - SHORTNESS OF BREATH (4) CKD (chronic kidney disease) Code(s): N18.9 - CHRONIC KIDNEY DISEASE, UNSPECIFIED (5) Diabetes mellitus Code(s): E11.9 - TYPE 2 DIABETES MELLITUS WITHOUT COMPLICATIONS (6) Hypertension Code(s): I10 - ESSENTIAL (PRIMARY) HYPERTENSION
--- NOTE | 2016-05-15 10:52 | PN ---
Progress Note (short form) - Note Progress Note: S: feeling better, asking if can go home soon. no cp sob palps dizzy Current Medications Generic Name Dose Route Start Last Admin Trade Name Nneka PRN Reason Stop Dose Admin Aspirin 81 mg 05/14/16 10:00 05/15/16 09:56 Ecotrin - PO 81 mg DAILY [facility] Administration Atorvastatin Calcium 80 mg 05/14/16 22:00 05/14/16 21:48 Lipitor - PO 80 mg HS [facility] Administration Docusate Sodium 100 mg 05/14/16 10:00 05/15/16 09:56 Colace - PO 100 mg BID [facility] Administration Enalapril Maleate 10 mg 05/14/16 10:00 05/15/16 09:56 Vasotec - PO 10 mg DAILY [facility] Administration Furosemide 40 mg 05/15/16 10:00 05/15/16 09:56 Lasix Injection - IVPUSH 40 mg DAILY [facility] Administration Heparin Sodium (Porcine) 5,000 unit 05/13/16 22:00 05/15/16 09:56 Heparin - SQ 5,000 unit BID [facility] Administration Insulin Aspart 1 vial 05/14/16 07:00 05/15/16 06:00 Novolog Vial Sliding Scale - SQ Not Given ACHS [facility] Protocol Insulin Detemir 30 units 05/14/16 22:00 05/14/16 21:48 Levemir Vial SQ Not Given HS [facility] Metoprolol Succinate 50 mg 05/15/16 10:00 05/15/16 09:56 Toprol Xl - PO 50 mg DAILY [facility] Administration Nifedipine 60 mg 05/15/16 10:00 05/15/16 09:56 Procardia Xl - PO 60 mg DAILY [facility] Administration Vital Signs Period Temp Pulse Resp BP Sys/Martel Pulse Ox Last 24 Hr 98.0 F-99.1 F 73-88 18-20 127-170/76-87 96-98 Constitutional: Yes: No Distress, Obese Eyes: No: Sclera Icterus Respiratory: Yes: cta bl nl eff. No: Accessory Muscle Use, Rales, Wheezes Gastrointestinal: Yes: Normal Bowel Sounds. No: Distention, Hepatomegaly, Palpable Mass, Tenderness Cardiovascular: Yes: Regular Rate and Rhythm Heart Sounds: Yes: S1, S2. No: Gallop Murmur: No: Systolic Murmur, Diastolic Murmur Extremities: No: Cold, Cyanosis Edema: trace le edema bl Integumentary: No Jaundice diaphoresis Neurological: Yes: Alert, Oriented (x3) Psychiatric: No: Agitated CBC, BMP 05/15/16 06:10 05/15/16 05:35 ekg in ER 05/13: NSR, nornmal axis/intervals; NSST-T lateral leads; no path q's ( no old) stress 04/2016 (outpt): non-ischemic EKG. mild intensity small area of inferolateral ischemia. Nl EF 57% tele: sr Assessment/Plan 60 yo f with h/o HTN, CKD, DM p/w sob/orthopnea, chest tightness, sweating, headache and B/P 220/75. acute diastolic HF exacerbation - acute HTN, possible trigger. No signs of valvular disease on exam. Would get echo as outpatient once euvolemic. - getting 40 mg IV lasix with improvement in creatinine and pulm edema. Would continue. Daily weights, bmp, i/o . - BP control HTN urgency: -symptomatic severe bp elevation ? while asleep --> bp 140s upon arrival to ER. Can consider sleep study as outpatient to assess if BOO contributing to nighttime bp elevation. - bp better but still elevated. cont metoprolol, enalapril, will add nifedipine (was on 90 qd at home) as well cp/CAD: -trop neg x 3. ECG with nonsp ST-Ts no prior baseline. current presentation of nonspecific (nonexertional) sx's in setting of marked bp elevation are highly unlikely to be acute myocardial ischemia syndrome -small inferolateral ischemia on recent nuclear stress test (study done here, report reviewed ) with no hi risk findings--not likely contributing to chf and pt hi risk for CLAUDIO--would not rec cath. Cont medical management. - metoprolol, ASA and statin therapy initiated. HL - LDL significantly elevated. will increase statin dose to 80 mg qhs CKD: -? baseline, currently improving/stable with diuresis. Con't to monitor
[2016-05-15] MEDS ORDERED: INSULIN (NOVOLOG) ASPART 100 UNITS/ML 10ML VIAL ONE ×2 (11:53→21:27)
--- NOTE | 2016-05-15 19:10 | PN ---
Progress Note, Physician History of Present Illness: Pt seen and examined at bedside. She is awake and alert. She denies shortness of breath today. - Current Medication List Current Medications: Active Medications Aspirin (Ecotrin -) 81 mg PO DAILY [facility] Last Admin: 05/15/16 09:56 Dose: 81 mg Atorvastatin Calcium (Lipitor -) 80 mg PO HS [facility] Last Admin: 05/14/16 21:48 Dose: 80 mg Docusate Sodium (Colace -) 100 mg PO BID [facility] Last Admin: 05/15/16 09:56 Dose: 100 mg Enalapril Maleate (Vasotec -) 10 mg PO DAILY [facility] Last Admin: 05/15/16 09:56 Dose: 10 mg Furosemide (Lasix Injection -) 40 mg IVPUSH DAILY [facility] Last Admin: 05/15/16 09:56 Dose: 40 mg Heparin Sodium (Porcine) (Heparin -) 5,000 unit SQ BID [facility] Last Admin: 05/15/16 09:56 Dose: 5,000 unit Insulin Aspart (Novolog Vial Sliding Scale -) 1 vial SQ [facility] PRN Reason: Protocol Last Admin: 05/15/16 15:46 Dose: Not Given Insulin Detemir (Levemir Vial) 30 units SQ [facility] Last Admin: 05/14/16 21:48 Dose: Not Given Metoprolol Succinate (Toprol Xl -) 50 mg PO DAILY [facility] Last Admin: 05/15/16 09:56 Dose: 50 mg Nifedipine (Procardia Xl -) 60 mg PO DAILY [facility] Last Admin: 05/15/16 09:56 Dose: 60 mg - Objective Vital Signs: Vital Signs Temperature 97.8 F 05/15/16 14:45 Pulse Rate 76 05/15/16 14:45 Respiratory Rate 22 05/15/16 14:45 Blood Pressure 140/78 05/15/16 14:45 O2 Sat by Pulse Oximetry (%) 98 05/15/16 10:00 Constitutional: Yes: Calm Eyes: Yes: Conjunctiva Clear HENT: Yes: Atraumatic Neck: Yes: Supple Cardiovascular: Yes: S1, S2 Respiratory: Yes: CTA Bilaterally Gastrointestinal: Yes: Normal Bowel Sounds, Soft Genitourinary: Yes: WNL Musculoskeletal: Yes: WNL Extremities: Yes: WNL Edema: No Neurological: Yes: Oriented Psychiatric: Yes: Oriented Labs: CBC, BMP 05/15/16 06:10 05/15/16 05:35 - ....Imaging Ultrasound: Report Reviewed Problem List - Problems (1) Hypertension Code(s): I10 - ESSENTIAL (PRIMARY) HYPERTENSION (2) Diabetes mellitus Code(s): E11.9 - TYPE 2 DIABETES MELLITUS WITHOUT COMPLICATIONS (3) CKD (chronic kidney disease) Code(s): N18.9 - CHRONIC KIDNEY DISEASE, UNSPECIFIED Assessment/Plan Current Medications Generic Name Dose Route Start Last Admin Trade Name Nneka PRN Reason Stop Dose Admin Aspirin 81 mg 05/14/16 10:00 05/15/16 09:56 Ecotrin - PO 81 mg DAILY [facility] Administration Atorvastatin Calcium 80 mg 05/14/16 22:00 05/14/16 21:48 Lipitor - PO 80 mg HS [facility] Administration Docusate Sodium 100 mg 05/14/16 10:00 05/15/16 09:56 Colace - PO 100 mg BID [facility] Administration Enalapril Maleate 10 mg 05/14/16 10:00 05/15/16 09:56 Vasotec - PO 10 mg DAILY [facility] Administration Furosemide 40 mg 05/15/16 10:00 05/15/16 09:56 Lasix Injection - IVPUSH 40 mg DAILY [facility] Administration Heparin Sodium (Porcine) 5,000 unit 05/13/16 22:00 05/15/16 09:56 Heparin - SQ 5,000 unit BID [facility] Administration Insulin Aspart 1 vial 05/14/16 07:00 05/15/16 15:46 Novolog Vial Sliding Scale - SQ Not Given ACHS [facility] Protocol Insulin Detemir 30 units 05/14/16 22:00 05/14/16 21:48 Levemir Vial SQ Not Given HS [facility] Metoprolol Succinate 50 mg 05/15/16 10:00 05/15/16 09:56 Toprol Xl - PO 50 mg DAILY [facility] Administration Nifedipine 60 mg 05/15/16 10:00 05/15/16 09:56 Procardia Xl - PO 60 mg DAILY [facility] Administration Impression 1. CKD unclear baseline creatinine 2. HTN uncontrolled 3. chest pain r/o acs 4. hyperlipidemia Plan - check urine protein to creatinine ratio - will need to see pt in office for CKD workup - renal doppler neg for stenosis - cardio input appreciated - cont to monitor BP Dr Nevarez
[2016-05-15] MEDS: INSULIN DETEMIR 100 UNITS/ML MDV SQ SCH (21:29)
[2016-05-15] MEDS: ATORVASTATIN CA 20 MG TABLET (FP) PO SCH (21:30)
[2016-05-16] MEDS: INSULIN SLIDING SCALE (NOVOLOG) 1 VIAL SQ SCH ×2 (06:18→12:00)
[2016-05-16 06:37] VITALS: BP 160/84; PULSE 74; TEMP 98.3
[2016-05-16 07:45] LABS: BASOPHIL 0.8 % (0-2.0); EOSINOPHIL 6.5 % (0-4.5); MCH 28.3 pg (25.7-33.7); MCHC 34.2 g/dl (32.0-36.0); MEAN CELL VOLUME 82.8 fl (80-96); MEAN PLT VOLUME 9.4 fl (7.5-11.1); NEUTROPHILS 47.4 % (42.8-82.8); PLATELET COUNT 320 K/MM3 (134-434); RDW 13.7 % (11.6-15.6); WHITE BLOOD COUNT 11.3 K/mm3 (4.0-10.0)
[2016-05-16 08:31] LABS: CALCIUM 8.4 mg/dL (8.5-10.1); CREATININE 2.1 mg/dL (0.55-1.02); MAGNESIUM 1.9 mg/dL (1.8-2.4)
[2016-05-16] MEDS: HEPARIN NA (PORCINE) 5,000 UNITS/ML 1ML VIAL SQ SCH (09:12)
[2016-05-16] MEDS: FUROSEMIDE 40 MG/4 ML INJECTABLE VIAL IVPUSH SCH (09:12)
[2016-05-16] MEDS: NIFEdipine E.R 60 MG TABLET (UD) PO SCH (09:13)
[2016-05-16] MEDS: ASPIRIN COATED 81 MG TABLET.EC PO SCH (09:13)
[2016-05-16] MEDS: METOPROLOL SUCCINATE 50 MG TAB.SR.24H (FP) PO SCH (09:13)
[2016-05-16] MEDS: DOCUSATE SODIUM 100 MG CAPSULE (FP) PO SCH (09:13)
[2016-05-16] MEDS: ENALAPRIL MALEATE 10 MG TABLET (FP) PO SCH (09:13)
--- NOTE | 2016-05-16 10:40 | PN ---
Progress Note (short form) - Note Progress Note: S: feeling better, no liu with walking in halls, no cp sob palps dizzy Current Medications Generic Name Dose Route Start Last Admin Trade Name Nneka PRN Reason Stop Dose Admin Aspirin 81 mg 05/14/16 10:00 05/16/16 09:13 Ecotrin - PO 81 mg DAILY [facility] Administration Atorvastatin Calcium 80 mg 05/14/16 22:00 05/15/16 21:30 Lipitor - PO 80 mg HS [facility] Administration Docusate Sodium 100 mg 05/14/16 10:00 05/16/16 09:13 Colace - PO 100 mg BID [facility] Administration Enalapril Maleate 10 mg 05/14/16 10:00 05/16/16 09:13 Vasotec - PO 10 mg DAILY [facility] Administration Furosemide 40 mg 05/15/16 10:00 05/16/16 09:12 Lasix Injection - IVPUSH 40 mg DAILY [facility] Administration Heparin Sodium (Porcine) 5,000 unit 05/13/16 22:00 05/16/16 09:12 Heparin - SQ 5,000 unit BID [facility] Administration Insulin Aspart 1 vial 05/14/16 07:00 05/16/16 06:18 Novolog Vial Sliding Scale - SQ Not Given [facility] Protocol Insulin Detemir 30 units 05/14/16 22:00 05/15/16 21:29 Levemir Vial SQ 30 units HS [facility] Administration Metoprolol Succinate 50 mg 05/15/16 10:00 05/16/16 09:13 Toprol Xl - PO 50 mg DAILY [facility] Administration Nifedipine 60 mg 05/15/16 10:00 05/16/16 09:13 Procardia Xl - PO 60 mg DAILY [facility] Administration Vital Signs Period Temp Pulse Resp BP Sys/Martel Pulse Ox Last 24 Hr 97.8 F-98.5 F 68-79 18-22 123-160/70-84 96-96 Constitutional: Yes: No Distress, Obese Eyes: No: Sclera Icterus Respiratory: Yes: cta bl nl eff. No: Accessory Muscle Use, Rales, Wheezes Gastrointestinal: Yes: Normal Bowel Sounds. No: Distention, Hepatomegaly, Palpable Mass, Tenderness Cardiovascular: Yes: Regular Rate and Rhythm Heart Sounds: Yes: S1, S2. No: Gallop Murmur: No: Systolic Murmur, Diastolic Murmur Extremities: No: Cold, Cyanosis Edema: no le edema Integumentary: No Jaundice diaphoresis Neurological: Yes: Alert, Oriented (x3) Psychiatric: No: Agitated CBC, BMP 05/16/16 05:35 05/16/16 05:35 ekg in ER 05/13: NSR, nornmal axis/intervals; NSST-T lateral leads; no path q's ( no old) stress 04/2016 (outpt): non-ischemic EKG. mild intensity small area of inferolateral ischemia. Nl EF 57% tele: sr Assessment/Plan 60 yo f with h/o HTN, CKD, DM p/w sob/orthopnea, chest tightness, sweating, headache and B/P 220/75. acute diastolic HF exacerbation - acute HTN, possible trigger. No signs of valvular disease on exam. Would get echo as outpatient once euvolemic. - has been getting 40 mg IV lasix with improvement in creatinine and pulm edema. Euvolemic now. Can change to po diuretic lasix 40 qd and ready for dc from cardiac pov, should f/u with her outpt pmd/cardio 2 weeks to monitor vol status, bp - BP control as doing HTN urgency: -symptomatic severe bp elevation ? while asleep --> bp 140s upon arrival to ER. Can consider sleep study as outpatient to assess if BOO contributing to nighttime bp elevation. - improved on current metoprolol, enalapril, nifedipine, cont for now and monitor as outpt cp/CAD: -trop neg x 3. ECG with nonsp ST-Ts no prior baseline. current presentation of nonspecific (nonexertional) sx's in setting of marked bp elevation are highly unlikely to be acute myocardial ischemia syndrome -small inferolateral ischemia on recent nuclear stress test (study done here, report reviewed ) with no hi risk findings--not likely contributing to chf and pt hi risk for CLAUDIO--would not rec cath. Cont medical management. - metoprolol, ASA and statin therapy initiated. HL - cont statin CKD: -? baseline, currently improving/stable with diuresis
--- NOTE | 2016-05-16 10:51 | DS ---
Physical Examination Vital Signs: Vital Signs Temperature 98.3 F 05/16/16 06:00 Pulse Rate 74 05/16/16 06:00 Respiratory Rate 18 05/16/16 06:00 Blood Pressure 160/84 05/16/16 06:00 O2 Sat by Pulse Oximetry (%) 96 05/16/16 06:00 Findings/Remarks: Per admission note - Admission History of Present Illness: Patient is a 60-year-old female, who relocated to [facility] about 6 months ago -- admits "poor medical care in her country" She has about 20 yr history of diabetes, hypertension and on recent labs found to have Cr 2.2 - which is probably her baseline. Patient called the service with c/o chest pain, cold sweats and "difficulty breathing"- she reports she was unable to lay flat due to SOB. Daughter who is an RN reports patient with rales and wheezing at that time ( no Hx of asthma)- she was instructed to go the [facility] ER--- She presents to ER with chest tightness, diaphoresis and headache in the setting of elevated BP at home. BP normalized in ED without any intervention. Pt found to have positive crackles on exam and pedal edema, which is intermittent as per patient. Labs only remarkable for BNP in the 500s (unknown baseline) with congestive changes on chest x-ray; elevated BNP not useful in the setting of CKD. EKG and initial troponin negative, second troponin pending. Of note, patient had stress test 4 days ago, which showed no significant EKG changes on exercise portion, but nuclear portion did show mild nonextensive inferolateral ischemia with EF of 57%. Patient currently asymptomatic and stable on the monitor. History Source: Patient, Family Member (daughter), Medical Record Limitations to Obtaining History: No Limitations per Cardio note Assessment/Plan 60 yo f with h/o HTN, CKD, DM p/w sob/orthopnea, chest tightness, sweating, headache and B/P 220/75. acute diastolic HF exacerbation - acute HTN, possible trigger. No signs of valvular disease on exam. Would get echo as outpatient once euvolemic. - has been getting 40 mg IV lasix with improvement in creatinine and pulm edema. Euvolemic now. Can change to po diuretic lasix 40 qd and ready for dc from cardiac pov, should f/u with her outpt pmd/cardio 2 weeks to monitor vol status, bp - BP control as doing HTN urgency: -symptomatic severe bp elevation ? while asleep --> bp 140s upon arrival to ER. Can consider sleep study as outpatient to assess if BOO contributing to nighttime bp elevation. - improved on current metoprolol, enalapril, nifedipine, cont for now and monitor as outpt cp/CAD: -trop neg x 3. ECG with nonsp ST-Ts no prior baseline. current presentation of nonspecific (nonexertional) sx's in setting of marked bp elevation are highly unlikely to be acute myocardial ischemia syndrome -small inferolateral ischemia on recent nuclear stress test (study done here, report reviewed ) with no hi risk findings--not likely contributing to chf and pt hi risk for CLAUDIO--would not rec cath. Cont medical management. - metoprolol, ASA and statin therapy initiated. HL - cont statin CKD: -? baseline, currently improving/stable with diuresis Plan discharge on current medications with follow up at office within 1 week will arrange for Cardio and renal follow up and review of Cardio and Renal work up Constitutional: Yes: Well Nourished, No Distress, Calm Eyes: Yes: WNL HENT: Yes: WNL Neck: Yes: WNL Cardiovascular: Yes: Regular Rate and Rhythm Respiratory: Yes: WNL, Regular Gastrointestinal: Yes: WNL ...Rectal Exam: Yes: Deferred Renal/: Yes: WNL Musculoskeletal: Yes: WNL Edema: LLE: 1+, RLE: 1+ Peripheral Pulses: Left Radial: 2+, Right Radial: 2+, Left Doralis Pedis: 2+, Right Dorsalis Pedis: 2+, Left Femoral: 2+, Right Femoral: 2+ Integumentary: Yes: WNL ...Motor Strength: WNL Labs: CBC, BMP 05/16/16 05:35 05/16/16 05:35 Discharge Summary Reason For Visit: SHORTNESS OF BREATH Current Active Problems ACS (acute coronary syndrome) (Acute) CKD (chronic kidney disease) (Acute) Diabetes mellitus (Acute) Diastolic dysfunction with heart failure (Acute) Hypertension (Acute) SOB (shortness of breath) (Acute) Condition: Improved - Instructions Referrals: Dorothy Levine MD [Primary Care Provider] - Disposition: HOME - Home Medications Comprehensive Discharge Medication List: Ambulatory Orders Docusate Sodium [Colace -] 100 mg PO DAILY 05/13/16 Enalapril Maleate [Vasotec -] 10 mg PO DAILY 05/13/16 Insulin Aspart [Novolog] 5 unit SQ TID 05/13/16 Insulin Glargine,Hum.rec.anlog [Lantus (nf)] 30 units SQ HS 05/13/16 Nifedipine [Procardia Xl] 90 mg PO DAILY 05/13/16 Plan discharge with follow up on current meds will arrange for follow up with both Cardio and Renal once followed as out patient
--- NOTE | 2016-05-16 12:27 | PN ---
Progress Note, Physician History of Present Illness: Pt seen and examined at bedside. She is awake and alert. She denies shortness of breath. She is eager to go home. - Current Medication List Current Medications: Active Medications Aspirin (Ecotrin -) 81 mg PO DAILY [facility] Last Admin: 05/16/16 09:13 Dose: 81 mg Atorvastatin Calcium (Lipitor -) 80 mg PO HS [facility] Last Admin: 05/15/16 21:30 Dose: 80 mg Docusate Sodium (Colace -) 100 mg PO BID [facility] Last Admin: 05/16/16 09:13 Dose: 100 mg Enalapril Maleate (Vasotec -) 10 mg PO DAILY [facility] Last Admin: 05/16/16 09:13 Dose: 10 mg Furosemide (Lasix Injection -) 40 mg IVPUSH DAILY [facility] Last Admin: 05/16/16 09:12 Dose: 40 mg Heparin Sodium (Porcine) (Heparin -) 5,000 unit SQ BID [facility] Last Admin: 05/16/16 09:12 Dose: 5,000 unit Insulin Aspart (Novolog Vial Sliding Scale -) 1 vial SQ [facility] PRN Reason: Protocol Last Admin: 05/16/16 12:00 Dose: Not Given Insulin Detemir (Levemir Vial) 30 units SQ [facility] Last Admin: 05/15/16 21:29 Dose: 30 units Metoprolol Succinate (Toprol Xl -) 50 mg PO DAILY [facility] Last Admin: 05/16/16 09:13 Dose: 50 mg Nifedipine (Procardia Xl -) 60 mg PO DAILY [facility] Last Admin: 05/16/16 09:13 Dose: 60 mg - Objective Vital Signs: Vital Signs Temperature 98.3 F 05/16/16 06:00 Pulse Rate 74 05/16/16 06:00 Respiratory Rate 18 05/16/16 10:00 Blood Pressure 160/84 05/16/16 06:00 O2 Sat by Pulse Oximetry (%) 96 05/16/16 10:00 Constitutional: Yes: Calm Eyes: Yes: Conjunctiva Clear HENT: Yes: Atraumatic Neck: Yes: Supple Cardiovascular: Yes: S1, S2 Respiratory: Yes: CTA Bilaterally Gastrointestinal: Yes: Soft Genitourinary: Yes: WNL Edema: Yes Edema: LLE: 1+, RLE: 1+ Neurological: Yes: Oriented Psychiatric: Yes: Oriented Labs: CBC, BMP 05/16/16 05:35 05/16/16 05:35 Problem List - Problems (1) Hypertension Code(s): I10 - ESSENTIAL (PRIMARY) HYPERTENSION (2) Diabetes mellitus Code(s): E11.9 - TYPE 2 DIABETES MELLITUS WITHOUT COMPLICATIONS (3) CKD (chronic kidney disease) Code(s): N18.9 - CHRONIC KIDNEY DISEASE, UNSPECIFIED Assessment/Plan Current Medications Generic Name Dose Route Start Last Admin Trade Name Freq PRN Reason Stop Dose Admin Aspirin 81 mg 05/14/16 10:00 05/16/16 09:13 Ecotrin - PO 81 mg DAILY [facility] Administration Atorvastatin Calcium 80 mg 05/14/16 22:00 05/15/16 21:30 Lipitor - PO 80 mg HS [facility] Administration Docusate Sodium 100 mg 05/14/16 10:00 05/16/16 09:13 Colace - PO 100 mg BID [facility] Administration Enalapril Maleate 10 mg 05/14/16 10:00 05/16/16 09:13 Vasotec - PO 10 mg DAILY [facility] Administration Furosemide 40 mg 05/15/16 10:00 05/16/16 09:12 Lasix Injection - IVPUSH 40 mg DAILY [facility] Administration Heparin Sodium (Porcine) 5,000 unit 05/13/16 22:00 05/16/16 09:12 Heparin - SQ 5,000 unit BID [facility] Administration Insulin Aspart 1 vial 05/14/16 07:00 05/16/16 12:00 Novolog Vial Sliding Scale - SQ Not Given ACHS [facility] Protocol Insulin Detemir 30 units 05/14/16 22:00 05/15/16 21:29 Levemir Vial SQ 30 units HS [facility] Administration Metoprolol Succinate 50 mg 05/15/16 10:00 05/16/16 09:13 Toprol Xl - PO 50 mg DAILY [facility] Administration Nifedipine 60 mg 05/15/16 10:00 05/16/16 09:13 Procardia Xl - PO 60 mg DAILY [facility] Administration Impression 1. CKD unclear baseline creatinine 2. HTN uncontrolled 3. chest pain r/o acs 4. hyperlipidemia Plan - renal function has been at about 2.1. - pt will need an outpt renal workup, this was discussed with her and she will come to the office on Friday - cont with diuretics - monitor blood pressure - can increase dose of procardia to 90 if needed - repeat bp after am meds Dr Neavrez
== END 2016-05-16 14:56 | disposition home or self-care (01) | DRG 199 ==
LOC: JER 02:55 → JERBED 08:50 → J4W 23:05
PROVIDERS: ADMIT Family Medicine; ATTEND Family Medicine
DX: I16.0 Hypertensive urgency (principal); I13.0 Hypertensive heart and chronic kidney disease with heart failure and stage 1 through stage 4 chronic kidney disease, or unspecified chronic kidney disease; N18.9 Chronic kidney disease, unspecified; I50.31 Acute diastolic (congestive) heart failure; R51 Headache; J81.0 Acute pulmonary edema; E11.9 Type 2 diabetes mellitus without complications; Z79.4 Long term (current) use of insulin; E87.5 Hyperkalemia; I24.9 Acute ischemic heart disease, unspecified; E78.5 Hyperlipidemia, unspecified
CPT/HCPCS: 36415; 71010-TC; 71020-TC; 76775-TC; 80048; 80053; 80061; 81003; 81015; 82550; 82553; 83721; 83735; 83880; 84100; 84484; 85025; 85027; 87086; 93005; 93010; 93975; 99285-25; J1644

== ENCOUNTER → 2016-07-08 | Emergency (ER) | payer OTHER ==
[~2016-07-08] MED LIST: SODIUM POLYSTYRENE SULFONATE 15 GM/60 ML BOTTLE ONE; SODIUM POLYSTYRENE SULFONATE 15 GM/60 ML BOTTLE PO ONE
[2016-07-08 15:57] VITALS: BP 136/69; PULSE 78; TEMP 97.8; BMI 30.1
--- NOTE | 2016-07-08 17:06 | PDOC ---
History of Present Illness - General Chief Complaint: Revisit, Lab Variance Stated Complaint: LAB VARIANCE Time Seen by Provider: 07/08/16 17:00 History Source: Patient Exam Limitations: No Limitations - History of Present Illness Initial Comments: 07/08/16 17:06 CHIEF COMPLAINT: Lab variance HISTORY OF PRESENT ILLNESS: This is a 60 year old female with a history of IDDM and HTN, who had outpatient lab work in preparation for cataract surgery and was told that her potassium was high. The patient reports that her kidney function tests "go up and down", but she has never seen a passport application examiner. She denies LE edema, shortness of breath, oliguria, or any other symptoms. V/s on arrival are unremarkable. REVIEW OF SYSTEMS: GENERAL/CONSTITUTIONAL: No fever or chills. No weakness. No weight change. CARDIOVASCULAR: No chest pain or palpitations. RESPIRATORY: No cough, wheezing, or shortness of breath. GASTROINTESTINAL: No nausea, vomiting, diarrhea or constipation. GENITOURINARY: No dysuria, frequency, or change in urination. MUSCULOSKELETAL: No joint or muscle swelling or pain. No neck or back pain. SKIN: No rash or easy bruising. NEUROLOGIC: No headache, vertigo, loss of consciousness, or loss of sensation. PSYCHIATRIC: No depression or anxiety. ENDOCRINE: No increased thirst. No abnormal weight change. HEMATOLOGIC/LYMPHATIC: No anemia, easy bleeding, or history of blood clots. ALLERGIC/IMMUNOLOGIC: No hives or skin allergy. No latex allergy. PHYSICAL EXAM: GENERAL: The patient is awake, alert, and fully oriented, in no acute distress. ENT: Pupils equal, round and reactive to light, extraocular movements intact, sclera anicteric, conjunctiva clear. Neck supple. LUNGS: Clear to auscultation bilaterally. Normal excursion. No respiratory distress or use of accessory muscles. CV: RRR, S1/S2, no MRG. Cap refill < 2 sec. ABDOMEN: Soft, non-distended, non-tender. EXTREMITIES: Normal range of motion, no edema. NEUROLOGICAL: Normal speech, normal gait. CN II-XII grossly intact. PSYCH: Normal mood, normal affect. SKIN: Warm, dry, normal turgor, no rashes or lesions noted. Past History - Past Medical History Allergies/Adverse Reactions: Allergies Allergy/AdvReac Type Severity Reaction Status Date / Time No Known Drug Allergies Allergy Verified 07/08/16 15:52 Home Medications: Ambulatory Orders Enalapril Maleate [Vasotec -] 20 mg PO DAILY 05/13/16 Insulin Glargine,Hum.rec.anlog [Lantus (10mL VIAL) -] 30 units SQ HS 05/13/16 Aspirin Coated [Ecotrin -] 81 mg PO DAILY 05/16/16 Atorvastatin Ca [Lipitor] 80 mg PO HS #30 tab 05/16/16 Docusate Sodium [Colace -] 100 mg PO BID 05/16/16 Metoprolol Succinate [Toprol XL -] 50 mg PO DAILY #30 05/16/16 Nifedipine ER [Procardia XL -] 60 mg PO DAILY #30 05/16/16 Insulin Sliding Scale [Novolog Vial Sliding Scale -] 5 units SQ QID 07/08/16 Diabetes: Yes GI Disorders: Yes (? renal disease) HTN: Yes - Immunization History Immunization Up to Date: Yes - Psycho/Social/Smoking Cessation Hx Suicidal Ideation: No Smoking History: Never smoked Information on smoking cessation initiated: No Hx Alcohol Use: No Drug/Substance Use Hx: No *Physical Exam - Vital Signs Last Vital Signs Temp Pulse Resp BP Pulse Ox 97.8 F 78 18 136/69 98 07/08/16 15:52 07/08/16 15:52 07/08/16 15:52 07/08/16 15:52 07/08/16 15:52 ED Treatment Course - LABORATORY CBC & Chemistry Diagram: 07/08/16 17:20 07/08/16 17:20 Medical Decision Making - Medical Decision Making 07/08/16 19:16 A/P: 60 year old female with abnormal outpatient labs, asymptomatic. 1. EKG 2. CBC, CMP, UA 07/08/16 19:21 Labs notable for glucose 377 Cr 2.9 K 5.6 EKG reviewed: NSR, no T wave changes Patient refuses UA Daughter is SALES [employer]PRESENT[employer] and plans to follow up with Dr. Levine on Friday to change insulin regimen Has appointment with Dr. Nevarez in July Call placed to nephrology Discussed with Dr. Levine - recommends Kayexelate x 1 and discharge *DC/Admit/Observation/Transfer Diagnosis at time of Disposition: Hyperkalemia - Discharge Dispostion Admit: No - Referrals Referrals: Artemio Nevarez MD [Staff Physician] - (In July as scheduled) Dorothy Levine MD [Primary Care Provider] - (Friday) - Patient Instructions Printed Discharge Instructions: DI for Hyperkalemia Additional Instructions: -You were seen today for abnormal kidney function tests -Your potassium today was 5.6 -No EKG abnormalities were seen -You were given 1 dose of Kayexelate 30g to help lower your potassium -Follow up with Dr. Nevarez in July as scheduled -Your blood sugar is not well-controlled; Dr. Levine is aware and will change your insulin regimen... she would like to see you on Friday -Return here for any concerning symptoms, especially chest pain, shortness of breath, leg swelling, or no urine output
[2016-07-08 17:30] LABS: BASOPHIL 1.1 % (0-2.0); MCH 27.7 pg (25.7-33.7); MCHC 33.3 g/dl (32.0-36.0); MEAN CELL VOLUME 83.2 fl (80-96); MEAN PLT VOLUME 9.2 fl (7.5-11.1); PLATELET COUNT 286 K/MM3 (134-434); RDW 13.6 % (11.6-15.6)
[2016-07-08 18:22] LABS: ALBUMIN 3.2 g/dl (3.4-5.0); BILIRUBIN,TOTAL 0.3 mg/dL (0.2-1.0); CALCIUM 8.5 mg/dL (8.5-10.1); COCKROFT - GAULT 25.109; CREATININE 2.9 mg/dL (0.55-1.02); PHOSPHOROUS 3.9 mg/dL (2.5-4.9); TOT PROT 6.8 g/dl (6.4-8.2)
--- NOTE | 2016-07-08 19:23 | PDOC ---
*Physical Exam - Vital Signs Last Vital Signs Temp Pulse Resp BP Pulse Ox 97.8 F 78 18 136/69 98 07/08/16 15:52 07/08/16 15:52 07/08/16 15:52 07/08/16 15:52 07/08/16 15:52 Heart Score/ECG Review - ECG Intrepretation Rhythm: Regular Rhythm Comment:: 07/08/16 19:[address] t wave changes. normal T wave. QRS normal. normal axis ED Treatment Course - LABORATORY CBC & Chemistry Diagram: 07/08/16 17:20 07/08/16 17:20 - ADDITIONAL ORDERS Additional order review: Laboratory Results 07/08/16 17:20 Sodium 135 L Potassium 5.6 H Chloride 101 Carbon Dioxide 27 Anion Gap 7 L BUN 55 H Creatinine 2.9 H D Creat Clearance w eGFR 16.55 Random Glucose 377 H* D Calcium 8.5 Phosphorus 3.9 Magnesium 2.0 Total Bilirubin 0.3 D AST 34 D ALT 53 D Alkaline Phosphatase 203 H D Total Protein 6.8 Albumin 3.2 L 07/08/16 17:20 RBC 3.41 L MCV 83.2 MCHC 33.3 RDW 13.6 MPV 9.2 Neutrophils % 53.0 Lymphocytes % 31.1 Monocytes % 5.8 Eosinophils % 9.0 H Basophils % 1.1 Medical Decision Making - Medical Decision Making 07/08/16 19:21 60 yo F with h/o HTN CKD here wtih elevated potassium. pt was seen by pcp, an told to come to ed. denies palpitations, no weakness, no numbness or tingling, no mod factors. no cp no sob. not on dialysis. on physical exam awake, alert comfortable. abd soft NT. lungs CTAB . heart RRR no mr/g/. ext wwp. plan: will d/w historic interpreter. rpt ekg, K level. will d/w pt historic interpreter. if normal dc. plan d/w pa and agree with above. *DC/Admit/Observation/Transfer Diagnosis at time of Disposition: Hyperkalemia - Referrals Referrals: Dorothy Levine MD [Primary Care Provider] -
--- NOTE | 2016-07-09 17:10 | EKG ---
Test Reason : Blood Pressure : / mmHG Vent. Rate : 079 BPM Atrial Rate : 079 BPM P-R Int : 148 ms QRS Dur : 084 ms QT Int : 390 ms P-R-T Axes : 059 017 071 degrees QTc Int : 447 ms NORMAL SINUS RHYTHM NORMAL ECG WHEN COMPARED WITH ECG OF 13-MAY-2016 15:44, T WAVE VARIATION Confirmed by SALVATORE ROBINS MD ([id number]) on 07/09/2016 5:10:35 PM Referred By: Confirmed By:SALVATORE ROBINS MD
== END | disposition home or self-care (01) ==
LOC: JER 15:31
DX: E87.5 Hyperkalemia (principal); E11.9 Type 2 diabetes mellitus without complications; Z79.4 Long term (current) use of insulin; I10 Essential (primary) hypertension
CPT/HCPCS: 36415; 80053; 83735; 84100; 85025; 93005; 93010; 99281-25